=== PATIENT | male | born 1945 | race Caucasian/White ===

== ENCOUNTER 2019-01-30 06:00 | Outpatient (RCR) | payer OTHER, SELFPAY | END 2019-03-01 00:01 | LOC: MPT 06:00 | PROVIDERS: Family Provider Family Medicine; Visit Provider Licensed Practical Nurse | DX: M51.17 Intervertebral disc disorders with radiculopathy, lumbosacral region (principal) | CPT/HCPCS: 97110 ×5; 97140 ×5 ==

== ENCOUNTER → 2019-03-01 06:00 | Outpatient (CLI) | payer OTHER, SELFPAY | PROVIDERS: Family Provider Family Medicine; PCP Nurse Practitioner; Referring Provider Licensed Practical Nurse; Visit Provider Licensed Practical Nurse | DX: M51.17 Intervertebral disc disorders with radiculopathy, lumbosacral region (principal) | CPT/HCPCS: 97110; 97140 ==

== ENCOUNTER 2019-05-13 08:18 | Outpatient (CLI) | payer OTHER, SELFPAY ==
--- NOTE | 2019-05-13 08:30 | CT_ITS ---
WS: [id number] CT MYELOGRAM LUMBAR SPINE HISTORY: Spondylolisthesis. TECHNIQUE: Contiguous 2.5 mm axial imaging performed from T12 through the mid sacral level. Bone and soft tissue windows reviewed. Sagittal and coronal reformats are submitted and reviewed. DLP: 2007.[address] scans at [facility] use at least one of these dose optimization techniques: automat ed exposure control; mA and/or kV adjustment per patient size (includes targeted exams where dose is matched to clinical indication); or iterative reconstruction. COMPARISON: 01/11/2019 Good injection of the thecal sac with contrast. 2 mm retrolisthesis of L1 and L2. No fractures. Endpl ate osteophytes throughout the lumbar spine. Conus tapers normally ends at the mid L1 level. No pars defects. L1-L2: Diffuse annular disc bulging and osteophytic ridging. No disc protrusion or stenosis. L2-L3: Slight annular disc bulging and facet arthropathy. No stenosis. L3-L4: Mild ligamentum flavum and facet arthropathy and disc bulging. Mild bilateral narrowing of the foramen. No significant stenosis. L4-L5: Mild annular disc bulging and facet arthropathy. There is a small disc protrusion in the LEFT foramen abutting the L4 nerve root. Mild bilateral foraminal stenosis. No significant stenosis or dis placement. L5-S1: Mild annular disc bulge. No stenosis. Visualized sacrum and SI joints are negative other than just mild osteophytic disease. Scattered calcifications within the aorta. CT/CT lumbar spine w con [id number] IMPRESSION: 1. Mild bilateral foraminal stenosis at L3-4 and L4-5. 2. Shallow LEFT foraminal disc protrusion at L4-5 with mild contact on the L4 nerve root. No significant stenosis. 3. Mild multilevel spondylosis.
--- NOTE | 2019-05-13 09:00 | IR_ITS ---
WS: [id number] LUMBAR MYELOGRAM HISTORY: Low back pain COMPARISON: None available. FLUOROSCOPY TIME: 0.6 minutes. Procedure, risks and complications were explained to the patient. Risks including bleeding, infection , headaches, allergic reaction and seizures. Consent has been obtained. With the patient in prone position the skin over the lumbar region is cleansed with ChloraPrep and an esthetized with lidocaine. 22-gauge spinal needle is inserted into the thecal sac at the appropriate level determined by fluoroscopy. Omnipaque 240; 12 ml is injected slowly under fluoroscopy with no co mplications. Needle bevel is perpendicular to the longitudinal fibers of the dura. Stylet is reinsert ed prior to removal of the needle. Patient tolerated the procedure well. Patient will proceed to CT f or further evaluation. Posterior lumbar alignment is normal. 2 to 3 mm retrolisthesis of L1-L4 with no instability. With fle xion and extension there is no instability. Spondylitic changes in the lower thoracic and lumbar spin e. Thecal sac is widely patent with only mild deformity along the ventral thecal sac from disc and os teophyte disease. Mild scattered atherosclerosis aorta. IR/IR myelogram sp lumbar [id number] IMPRESSION: 1. Uncomplicated lumbar myelogram. No significant stenosis identified. 2. No lumbar spine instability. Retrolisthesis L1-L4 with no instability. 3. Multilevel mild spondylosis.
[2019-05-13] MEDS: iohexol 240 mg/mL 50 mL Btl INTRATHECA (09:56)
== END 2019-05-13 08:19 | disposition home or self-care (01) ==
LOC: RADWPI 08:20
PROVIDERS: Family Provider Family Medicine; PCP Nurse Practitioner; Visit Provider Licensed Practical Nurse
DX: M51.17 Intervertebral disc disorders with radiculopathy, lumbosacral region (principal); M47.896 Other spondylosis, lumbar region
CPT/HCPCS: 62304; 72120; 72132

== ENCOUNTER 2022-08-14 07:09 | Outpatient (CLI) | payer OTHER, SELFPAY ==
--- NOTE | 2022-08-14 | USCV_ITS ---
Sourav Chambers Age: 77 Gender: M : 1945 Exam Date: 08/14/2022 07:24 Ordering Phys: Vee Salgado Technologist: SHY Exam Location: [facility] [place] Indication: AAA SCREENING HISTORY: Diameter (cm) AP x Transverse x Length Velocity (cm/s) Waveform Prox Aorta: 2.46 x 2.34 x 55.90 Mid Aorta: 1.94 x 1.70 x 49.40 Distal Aorta: 2.10 x 1.63 x 55.90 Right Iliac Prox: 0.92 x 1.09 x 53.70 Left Iliac Prox: 0.88 x 1.18 x 46.20 Stent Prox Landing x x Aneurysmal Sac Max x x Lt Lat Sac Dim Rt Lat Sac Dim Stent Dist Landing x x Right Iliac Stent x x Left Iliac Stent x x Right Renal Art Left Renal Art FINDINGS: Comparison: none available. No evidence of abdominal aortic or bilateral iliac aneurysm. There is no evidence of a right common iliac artery aneurysm. There is no evidence of a left common iliac artery aneurysm. CONCLUSIONS No evidence of abdominal aortic or bilateral iliac aneurysm. Dr. Aminah Love DO (Electronically Signed) Final Date: 14 August 2022 14:16 S
== END 2022-08-14 07:10 | disposition home or self-care (01) ==
PROVIDERS: PCP Nurse Practitioner; Visit Provider Nurse Practitioner
DX: Z13.6 Encounter for screening for cardiovascular disorders (principal); Z87.891 Personal history of nicotine dependence
CPT/HCPCS: 76706

== ENCOUNTER 2023-07-24 07:53 | Outpatient (CLI) | payer OTHER, SELFPAY ==
--- NOTE | 2023-07-24 07:56 | USCV_ITS ---
Sourav Chambers Age: 78 Gender: M : 1945 Exam Date: 07/24/2023 08:07 Ordering Phys: Vee Salgado Technologist: DARSHAN Exam Location: [facility] [place] Indication: Screening HISTORY: Diameter (cm) AP x Transverse x Length Velocity (cm/s) Waveform Prox Aorta: 1.53 x 2.04 x 61.70 Triphasic Mid Aorta: 1.84 x 2.20 x 50.10 Triphasic Distal Aorta: 1.51 x 1.81 x 56.20 Triphasic Right Iliac Prox: 0.73 x 1.01 x 80.70 Triphasic Left Iliac Prox: 0.91 x 1.26 x 74.70 Triphasic Stent Prox Landing x x Aneurysmal Sac Max x x Lt Lat Sac Dim Rt Lat Sac Dim Stent Dist Landing x x Right Iliac Stent x x Left Iliac Stent x x Right Renal Art Left Renal Art FINDINGS: Comparison:. 08/14/22 No evidence of abdominal aortic or bilateral iliac aneurysm. Ectatic abdominal aorta with evidence of atherosclerotic plaque noted. CONCLUSIONS Ectatic abdominal aorta with evidence of atherosclerotic plaque noted. No evidence of abdominal aortic aneurysm. Dr. Aminah Love DO (Electronically Signed) Final Date: 24 Jul 2023 09:14 S
== END 2023-07-24 07:54 | disposition home or self-care (01) ==
LOC: RAD 07:53
PROVIDERS: PCP Nurse Practitioner; Visit Provider Nurse Practitioner
DX: I77.811 Abdominal aortic ectasia (principal)
CPT/HCPCS: 76706

== ENCOUNTER 2023-08-25 09:42 | Outpatient (CLI) | payer OTHER, SELFPAY ==
--- NOTE | 2023-08-25 | ECG_ITS ---
[facility] Test Date: 2023-08-25 Pat Name: Sourav Chambers Department: Room: Gender: Male Clinical Project Leader: : 1945 Requested By: Vee Price Order Number: [id number] Steve MD: Farzana Keating M.D. Interpretive Statements NAME OF STUDY: LEXISCAN SESTAMIBI STRESS TEST INDICATION: CUETO/PRE OP CLEARANCE, PROCEDURE: At the baseline, the EKG revealed normal sinus rhythm with a normal ST Ts. The baseline heart was 60 bpm with a blood pressue of 127/79 mm of Hg Lexiscan was infused over a period of 20 seconds. A total of 0.4 milligrams of Lexiscan was infused. The stress phase was continued for a total of 5 minutes. Heart rate at the end of the stress phase was 72 bpm with a blood pressure 126/75 mm of Hg. The EKG at the peak infusion revealed no significant changes. Sestamibi was injected 20 seconds after the Lexiscan infusion. Heart rate at the end of the recovery phase was 74 bpm with a blood pressure of 125/75 mm of Hg. CONCLUSION: 1. No significant EKG changes with the LexiScan infusion 2. No LexiScan induced chest pain or cardiac arrhythmia 3. Normal blood pressure and heart rate response 4. Sestamibi/sestamibi perfusion scan pending; see separate report. Electronically Signed On 08-29-2023 14:26:28 CDT by Farzana Keating M.D. [email or web address]
[2023-08-25 10:09] VITALS: BMI 32.1
--- NOTE | 2023-08-25 10:11 | NMCV_ITS ---
NM kimberley perf SPECT r/s* [id number] Sourav Chambers Age: 78 Gender: M : 1945 Exam Date: 08/25/2023 10:41 Ordering Phys: Vee Salgado Technologist: TALAT Romano Exam Location: [facility] Indications: PREOP STRESS TEST Please see separate stress test report in [facility] for full findings IMAGE PROTOCOL Rest/Stress 1 Lexiscan Day Radiopharmaceutical Dose (mCi) Administration Site Administered by Rest: Tc-99m 10.7 IV TALAT Romano Sestamibi Stress:Tc-99m 33.0 IV TALAT Romano Sestamibi Rest: 25-Aug-2023 60 Discovery 630 Stress: 25-Aug-2023 30 Discovery 630 0.4mg Lexiscan. Images obtained in supine and prone position. SPECT RESULTS Technical Quality: Excellent Raw Data Analysis: Normal Image Corrections: No attenuation or motion correction applied Summed Stress Score: 10 Summed Rest Score: 11 Summed Difference Score: 2 PERFUSION FINDINGS Moderate area of moderately decreased tracer uptake involving the basal, mid and apical inferior; mid inferolateral wall regions with a subtle area reversibility in the apical inferior region. Small areas of slightly decreased aseptic involving the tracer uptake in the mid inferoseptal and mid anteroseptal regions. Several area of reversibility was noted in the mid anteroseptal region. FUNCTIONAL RESULTS (calculated via Gated SPECT) Stress Image LV EF (%): 55 Stress EDV (mL):87 TID: 1.16 Stress ESV (mL):39 FUNCTIONAL FINDINGS: Segmental wall motion analysis revealing no gross wall motion normalities. IMPRESSIONS 1. Myocardial perfusion imaging revealing moderate area of moderately decreased persistent tracer uptake involving the inferior, inferolateral , inferoseptal and anteroseptal regions with a subtle areas of reversibility suggesting myocardial scarring in the distribution of the right coronary artery/circumflex artery with a subtle area of possible preinfarction ischemia in the distribution of the right coronary artery. A subtle area of ischemia also was noted in the distribution of the left anterior descending artery. 2. Normal LV ejection fraction of 55%. 3. LV wall motion analysis revealing no gross wall motion normalities. 4. Normal LV volume 5. Slightly elevated transient ischemic dilatation ratio 1.16 may also suggest endocardial ischemia. No similar previous studies are available for comparison Dr Farzana Keating MD [facility] (Electronically Signed) Final Date: 25 August 2023 13:02 S
[2023-08-25] MEDS: regadenoson 0.4 Mg/5 ml Syringe 0.400000000000000022 MG IVP (11:11)
[2023-08-25 11:47] VITALS: BP 121/75; PULSE 72
== END 2023-08-25 09:43 | disposition home or self-care (01) ==
PROVIDERS: PCP Family Medicine; Visit Provider Nurse Practitioner
DX: R06.00 Dyspnea, unspecified (principal); R94.39 Abnormal result of other cardiovascular function study
CPT/HCPCS: 36415; 78452; 93017; 96374; A9500; J2785

== ENCOUNTER → 2023-11-03 13:28 | Outpatient (BNVA) | payer OTHER, SELFPAY | PROVIDERS: PCP Family Medicine; Referring Provider Nurse Practitioner; Visit Provider Internal Medicine Cardiovascular Disease | DX: R07.9 Chest pain, unspecified (principal); R94.39 Abnormal result of other cardiovascular function study; R06.02 Shortness of breath; R53.83 Other fatigue; I10 Essential (primary) hypertension; E11.69 Type 2 diabetes mellitus with other specified complication; I49.8 Other specified cardiac arrhythmias | CPT/HCPCS: 93005; 99204 ==

== ENCOUNTER 2023-11-13 06:27 | Outpatient (CLI) | payer OTHER, SELFPAY ==
--- NOTE | 2023-11-13 06:30 | USCV_ITS ---
Sourav Chambers Age: 78 Gender: M : 1945 Exam Date: 11/13/2023 06:37 Ordering Phys: Lobito Troy MD ([email or web address]) Technologist: Exam Location: [facility] [place] Indication: cad BP: 130 / 93 HR: 74 Rhythm: Sinus Technical Quality: Adequate MEASUREMENTS (Male / Female) Normal Values 2D ECHO LV Diastolic Diameter PLAX 4.0 cm 4.2 - 5.9 / 3.9 - 5.3 cm IVS Diastolic Thickness 1.3 cm 0.6 - 1.0 / 0.6 - 0.9 cm IVS Systolic Thickness 1.7 cm LVPW Diastolic Thickness 1.3 cm 0.6 - 1.0 / 0.6 - 0.9 cm LVPW Systolic Thickness 1.5 cm LVOT Diameter 2.1 cm LV Ejection Fraction 2D Teich 67.2 % LV Ejection Fraction MOD 4C 66.8 % LV Ejection Fraction MOD 2C 73.0 % LV Ejection Fraction 2C AL 73.8 % LA Diameter 3.5 cm RA Systolic Volume 4C AL 61.7 ml RA Systolic Volume 4C MOD 59.7 ml Aorta at Sinotubular Diameter 2.9 cm M-MODE LA Ao Ratio MM 1.0 AV Cusp Separation MM 2.7 cm DOPPLER AV Peak Velocity 112.0 cm/s LVOT Peak Velocity 96.0 cm/s AV Area Cont Eq vti 3.1 cm squared AV Area Cont Eq pk 2.9 cm squared MV Peak Velocity 81.0 cm/s MV Area PHT 3.9 cm squared Mitral E to A Ratio 0.8 TV Peak Velocity 175.5 cm/s TR Peak Velocity 211.0 cm/s TR Peak Gradient 17.8 mmHg TV Peak E Velocity 72.0 cm/s Right Atrial Pressure 3.0 mmHg Pulmonary Artery Systolic Pressu 20.8 mmHg PV Peak Velocity 107.0 cm/s FINDINGS Left Ventricle Normal left ventricular size, systolic function and wall thickness, with no regional wall motion abnormalities. Left ventricular ejection fraction is estimated at 60 %. Grade I/IV diastolic dysfunction (abnormal relaxation filling pattern), normal to mildly elevated filling pressures. Right Ventricle The right ventricle is normal in size and function. Right Atrium The right atrium is normal in size. Left Atrium The left atrium is normal in size. Mitral Valve Structurally normal mitral valve without significant stenosis or prolapse. There is no mitral regurgitation. Aortic Valve Structurally normal aortic valve without significant sclerosis or stenosis. There is no aortic regurgitation. Tricuspid Valve Structurally normal tricuspid valve without significant stenosis or regurgitation. Pulmonary artery systolic pressure is normal. Pulmonic Valve Structurally normal pulmonic valve without significant stenosis. There is no pulmonic regurgitation. Pericardium Normal pericardium without effusion. Aorta Normal ascending aorta dimension. IVC The inferior vena cava appears normal. CONCLUSIONS Normal left ventricular size, systolic function and wall thickness, with no regional wall motion abnormalities. Left ventricular ejection fraction is estimated at 60 %. Grade I/IV diastolic dysfunction (abnormal relaxation filling pattern), normal to mildly elevated filling pressures. There is no pericardial effusion. No significant valve abnormalities. Right atrial pressure is around 5 mm of mercury. Lobito Troy MD (Electronically Signed) Final Date: 13 November 2023 09:24 S
[2023-11-13 07:14] LABS: Basophils % 0.1 %; Eosinophils # 0.2 10^3/uL (0.0-0.8); Eosinophils % 2.1 %; Hematocrit 45.5 % (37-53); Lymphocytes # 2.1 10^3/uL (0.8-4.8); Lymphocytes % 28.9 %; Mean Corpuscular HGB Conc 32.5 g/dL (30-55); Mean Corpuscular Hemoglobin 30.9 pg (27-33); Mean Platelet Volume 9.6 fL (7.4-10.4); Monocytes # 0.8 10^3/uL (0.2-0.9); Monocytes % 11.6 %; Neutrophils % 56.9 %; Nucleated Red Blood Cells % 0 %; Platelet Count 195 10^3/cmm (157-399); Red Blood Count 4.79 10^6/uL (3.85-5.65); Red Cell Distribution Width 13.3 % (12.1-15.1); White Blood Count 7.22 10^3/uL (3.29-11.43)
[2023-11-13 07:48] LABS: INR 1.02 (0.83-1.21); Prothrombin Time (Patient) 13.7 Seconds (12.0-15.1)
[2023-11-13 07:55] LABS: Anion Gap 13.9 (5-19); Carbon Dioxide 26 mmol/L (22-29); Chloride 106 mmol/L (98-107); Potassium 4.9 mmol/L (3.5-5.1); Sodium 141 mmol/L (136-145)
[2023-11-13 07:58] LABS: Blood Urea Nitrogen 25 mg/dL (8-23); Glucose 118 mg/dL (65-115); Osmolality Calculated 297 mOsm/kg (285-295)
== END 2023-11-13 06:28 | disposition home or self-care (01) ==
PROVIDERS: Absent Provider Internal Medicine Cardiovascular Disease; PCP Family Medicine; Visit Provider Internal Medicine Cardiovascular Disease
DX: R94.39 Abnormal result of other cardiovascular function study (principal); R06.02 Shortness of breath; R07.9 Chest pain, unspecified; I51.89 Other ill-defined heart diseases
CPT/HCPCS: 36415; 80048; 85025; 85610; 93306

== ENCOUNTER 2023-11-17 05:54 | Outpatient (CLI) | payer OTHER, SELFPAY ==
[2023-11-17] VITALS (22 sets, daily range): BP systolic 102–146; BP diastolic 61–87; PULSE 56–77; RESP 15–19; TEMP 36.6; O2SAT 92–95; BMI 31.2
[2023-11-17] MEDS: diphenhydrAMINE 50 mg Capsule PO (06:10)
[2023-11-17] MEDS: aspirin 325 mg Tablet PO (06:10)
--- NOTE | 2023-11-17 07:00 | XACV_ITS ---
Exam Room: 2 Ht: 180 cm Wt: 102 kg BSA: 2.28 m2 Gender: Male : 1945 Any Known Allergies: No known allergies Exam Priority: Routine Procedure(s): Procedure Description: Diagnostic procedure Procedure Description: Left Heart Catheterization Procedure Description: Coronary Angiography LARSBETSY Rtoy; Diagnostic Cath Status: Elective Diagnostic Findings * Left main: Luminal irregularities without significant stenosis. * LAD: Luminal irregularity without significant stenosis. * LCx: Luminal irregularity without significant. * RCA: Dominant vessel with luminal irregularities, no significant stenosis. * LVEDP: Normal left ventricular end-diastolic pressure 13 mmHg. Conclusions 1. No significant obstructive coronary artery disease noted. 2. Normal left ventricular end-diastolic pressure. 3. Due to tortuosity of the subclavian vessel and because of the fact [place] left ventricular end-diastolic pressure and documented recent echocardiogram LV gram was deferred. Recommendations * Usual post cath care, extracardiac because for chest pain may need to be considered. Diagnostic RX Recommendation: none Pressures Phase:Rest AO : 102 / 59 ( 76 ) @ 8:36:00 AM 104 / 53 ( 76 ) @ 8:36:00 AM 104 / 56 ( 75 ) @ 8:36:00 AM 90 / 70 ( 80 ) @ 8:40:00 AM LV : 115 / -5 / 13 @ 8:35:00 AM 114 / -7 / 13 @ 8:36:00 AM Valves Phase:DefaultPhase AV : 12.0 @ 7:54:00 AM AV Mean Gradient: 9.0 @ 7:54:00 AM Clinical Evaluation EBL: 5mL-10mL Procedural Details Pre-Procedure Time Out. Identified patient by full name and date of as verbalized by the patient/guarantor. Does the consent match the physician's order: Yes. Accurate & Complete Informed Consent: Yes. Inpatient/Outpatient History & Physical on Chart: Yes. If H&P is completed, is and addenduem needed: No; If yes, is the addendum complete: N/A. Visualize and Verify Site with Patient/Guarantor: N/A. Relevant Radiology Images available: Yes. Pre-op teaching completed and patient verbalized understanding. The risks, benefits, and alternatives of sedation and/or procedure were discussed by physician. The patient agrees to continue. Procedure started. Current Diagnosis : Chest Pain. [facility] Clinical Fraility Score: 3: Managing Well. Office Machine Technician Indications: Suspected CAD. Chest Pain Symptom Assessment: Atypical Angina. Correct patient, site and procedure confirmed by cath team. Current diagnosis: Chest Pain. PERRLA. Strong, equal hand athletic agent bilaterally. Lungs clear x 5 lobes. IV Site on Arrival: 20 gauge in the left anticubital. IV Fluids: 0.9% NaCl at KVO. 0 mL infused prior to pathology lab technician. Pre Procedural Pulses: bilateral dorsalis pedis was 3+. Pre Procedural Pulses: bilateral posterior tibial was 1+. Pre Procedural Pulses: bilateral radial was 2+. Oxygen started at 2liters/min via nasal canula. right groin was prepped with chloroprep then draped in the usual sterile fashion. right radial was prepped with chloroprep then draped in the usual sterile fashion. Baseline sample Acquired. HR: 59 BPM. Physician arrived. Physician scrubbed in. Immediate Pre-Procedure Time Out. Correct Patient: Yes; Correct Procedure: Yes; Correct Site: Yes; Correct Patient Position: Yes; Correct Supplies: Yes; Dried Flammable Prep: Yes; Blood Products Available: N/A;. Lidocaine 1% infiltrated to the right radial. Arterial access obtained. A 5 polish TIG catheter in over wire. EDP Sample taken: LV 115/-6,13; HR: 52 BPM; SpO2: 96%. Pullback taken: LV 114/-8,13; AO 102/59(76); Mean: 9mmHg, Peak to Peak: 12mmHg, SEP: 16sec/min; HR: 57 BPM; SpO2: 95%. Catheter removed over the exchange wire. A 5 polish Seven catheter in over wire. Multiple views taken of right coronary artery. Catheter redirected to the LCA. Multiple views taken of left coronary artery. Catheter removed over the exchange wire. A 5 polish Angled Pig catheter in over wire. Catheter removed over the exchange wire. Vital chart was stopped. A TR Band was successful obtaining hemostatsis at the Right Radial artery insertion site. Post Procedure: Pulses reassessed and unchanged. PERRLA. Strong, equal hand athletic agent bilaterally. No VTE prophylaxis required. Medication's Wasted: Lidocaine 1% = 18 mL. Medication's Wasted: Nitro = 49.8 mcg. Medication's Wasted: Heparin = 1000 units. Medication's Wasted: Other = Fentanyl 50mcg Versed 1 mg. Total IV fluids: 35 mL. Complications: None. Estimated blood loss: 5mL-10mL. Responsiveness - Normal response to verbal stimuli; alert and oriented, PERRLA. Airway - Unaffected, no intervention required; spontaneous ventilation. Circulation: W/N/L, pulses unchanged. Nausea/Vomiting: No. Procedure completed. Patient transferred by stretcher to CPRU. Access Site Site: Right Radial artery Sheath Size: 6 Fr Hemostasis Method: TR Band Hemostasis Success: Successful Procedure Medications Start: 7:23 AM Stop: 7:23 AM Medication: Versed Amount: 1 mg Route: I.V. Start: 7:23 AM Stop: 7:23 AM Medication: Fentanyl Amount: 50 mcg Route: I.V. Start: 7:31 AM Stop: 7:31 AM Medication: Nitrogylcerin Amount: 200 mcg Route: I.A. Start: 7:34 AM Stop: 7:34 AM Medication: Heparin Amount: 5000 units Route: I.V. I, the attending physician, have reviewed and verified all procedure medications. Yes, all medications given per verbal order History/Risk Factors Hypertension: Yes Dyslipidemia: Yes Peripheral Arterial Disease (PAD): No Myocardial Infarction (TX): No Obesity: No Renal Disease: No Tobacco Use: Former Prior Interventions PCI: No CABG: No Valve Surgery: No Report Signatures Finalized by Lobito Troy MD on 11/17/2023 09:14 AM
--- NOTE | 2023-11-17 07:19 | P.HPUD_ITS ---
Surgery/Procedure H&P Update DATE OF PROCEDURE: November 17, 2023 DATE H&P PERFORMED: 11/17/23 H&P UPDATE INFORMATION: I have reviewed H&P completed within last 30 days, I have examined patient prior to procedure and No changes to prior documentation PRIMARY INDICATION FOR PROCEDURE: Left heart catheterization/PCI if indicated PLANNED PROCEDURE: Operation Date: 11/17/23 07:00 Proposed Procedures p Cardiac Catheterization - [facility] w/wo LV & Coros(Left) - Lobito Troy MD PATIENT REASSESSED PRIOR TO SEDATION, WITH NO CHANGE NOTED: Yes PHYSICAL EXAM: alert, oriented x 3, clear to auscultation bilaterally, regular rate & rhythm and operative site marked AIRWAY EVAL/ANESTHESIA PLAN: ASA II, Risks, benefits & alternatives of sedation and/or procedure discussed and Patient agrees to continue as planned ADDITIONAL INFORMATION: Mallampati 2
--- NOTE | 2023-11-17 07:55 | PC.NURSE ---
Pt arrived to CPRU room 3 post cath procedure. Pt arrived alert and oriented, breathing even and non-labored on room air. Patient denies pain. Placed on bedside ekg monitor tech. Right radial TR band in place. Site asymptomatic, no signs of bleeding or hematoma. Radial pulse palpable. Pt and educated on activity restrictions. Fluid order clarification, received verbal orders from Dr. Troy to infuse NS at 100ml/hr until discharge home. Fluids infusing from forestry farm laborer.
--- NOTE | 2023-11-17 10:30 | PC.NURSE ---
TR band removal Air removal of right radial TR band started at 0900. 2-3 ml air released every 5 to 15 minutes until band deflated. Band deflated at 1030. Radial site is asymptomatic. No signs of bleeding or hematoma. Radial pulse palpable. Large clean bandaid applied over site. Educated on reportable signs and symptoms. Verbalized understanding.
== END 2023-11-17 12:33 | disposition home or self-care (01) ==
PROVIDERS: PCP Family Medicine; Visit Provider Internal Medicine Cardiovascular Disease
DX: R94.39 Abnormal result of other cardiovascular function study (principal); R06.02 Shortness of breath; R53.83 Other fatigue; I10 Essential (primary) hypertension; E11.69 Type 2 diabetes mellitus with other specified complication; E78.5 Hyperlipidemia, unspecified; Z87.891 Personal history of nicotine dependence
CPT/HCPCS: 36415; 93458; 96374; 99152; 99153; C1769; C1887; C1894; J1644; J2250; J3010; J3490; J7030; Q0163; Q9967

== ENCOUNTER → 2024-02-11 16:00 | Outpatient (BNVA) | payer OTHER, SELFPAY | PROVIDERS: PCP Family Medicine; Visit Provider Internal Medicine Cardiovascular Disease | DX: I10 Essential (primary) hypertension (principal); Z87.891 Personal history of nicotine dependence | CPT/HCPCS: 99213 ==

== ENCOUNTER → 2024-07-21 08:21 | Outpatient (BNVA) | payer OTHER, SELFPAY | PROVIDERS: PCP Family Medicine; Visit Provider Podiatrist Foot & Ankle Surgery | DX: L60.3 Nail dystrophy (principal) | CPT/HCPCS: 99203 ==

== ENCOUNTER → 2025-02-09 12:57 | Outpatient (BNVA) | payer OTHER, SELFPAY | PROVIDERS: Visit Provider Internal Medicine Cardiovascular Disease | DX: R07.9 Chest pain, unspecified (principal); I10 Essential (primary) hypertension; Z00.00 Encounter for general adult medical examination without abnormal findings; Z87.891 Personal history of nicotine dependence | CPT/HCPCS: 99214 ==